=== PATIENT | male | born 1995 | race Caucasian/White ===

== ENCOUNTER 2016-06-26 13:04 | Emergency (ER) | payer OTHER ==
[~2016-06-26] VITALS: Ht 182.9 cm; Wt 54.3 kg
[2016-06-26 16:02] VITALS: BP 135/88
== END 2016-06-26 16:03 | disposition home or self-care (01) ==
LOC: EME 13:04
DX: L72.0 Epidermal cyst (principal)
CPT/HCPCS: 99281; 99284

== ENCOUNTER 2016-07-02 14:47 | Emergency (ER) | payer OTHER ==
[~2016-07-02] VITALS: Ht 182.9 cm; Wt 55.1 kg
[2016-07-02 16:56] LABS: EOSINOPHIL (%) 1.2 % (0-5); EOSINOPHIL COUNT 0.1 K/uL (0-0.3); HEMATOCRIT 45.6 % (38.0-50.0); IMMATURE GRANULOCYTE (%) 0.8 % (0.0-0.7); IMMATURE GRANULOCYTE COUNT 0.5 K/uL; MCH 29.5 PG (29.0-34.0); MCHC 34.2 G/DL (30.0-36.0); MCV 86.4 FL (86-99); MEAN PLAT.VOLUME 8.5 uM^3 (9.0-12.4); MONOCYTE (%) 8.2 % (3-12); MONOCYTE COUNT 0.5 K/uL (0-0.8); NEUTROPHIL (%) 72.2 % (45-76); NEUTROPHIL COUNT 4.3 K/uL (1.8-6.4); PLATELET COUNT 142 K/uL (156-360); RBC DIS.WIDTH-CV 12.4 % (11.8-14.6); RBC DIS.WIDTH-SD 38.7 % (39-53); RED BLOOD COUNT 5.28 M/uL (4.00-5.50)
[2016-07-02 17:08] LABS: CHLORIDE 104 mEq/L (99-109); POTASSIUM 4.2 mEq/L (3.7-5.4); SODIUM 140 mEq/L (136-147)
[2016-07-02 17:10] LABS: GLUCOSE 99 mg/dL (70-99)
[2016-07-02 17:11] LABS: ANION GAP 10 MEQ/L (2-14)
[2016-07-02 17:12] LABS: TOTAL BILIRUBIN 0.9 mg/dL (0.0-1.0)
[2016-07-02 17:14] LABS: ALKALINE PHOSPHATASE 100 IU/L (3-129); GFR ESTIMATE (CALCULATED) > 59 mL/min/
[2016-07-02 17:15] LABS: UREA NITROGEN (BUN) 11 mg/dL (9-23)
[2016-07-02 17:43] LABS: C-REACTIVE PROTEIN 2.6 MG/L (0-10)
[2016-07-02 18:19] LABS: INTERNAL CONTROL VALID? YES; MONOSPOT (MONONUCLEOSIS SEROL) NEGATIVE
[2016-07-02 18:52] VITALS: BP 133/88
== END 2016-07-02 18:52 | disposition home or self-care (01) ==
LOC: EME 14:47
PROVIDERS: Physician Assistant
DX: R59.1 Generalized enlarged lymph nodes (principal); H60.92 Unspecified otitis externa, left ear
CPT/HCPCS: 80053; 85025; 86140; 86308; 99281; 99283